=== PATIENT | male | born 1945 | race American Indian/Alaskan Native ===

== ENCOUNTER 2020-02-03 06:01 | Day surgery (SDC) | payer MEDICARE ==
[~2020-02-03 06:01] MED LIST: LACTATED RINGERS 1,000 ML IV SCH
[2020-02-03] MEDS ORDERED: BACTERIOSTATIC SODIUM CHLORIDE 0.9% 30 ML VIAL INFILTRATI ONE (06:13)
--- NOTE | 2020-02-03 07:15 | Anesthesia Consultation ---
Anesthesia Consult and Med Hx - Airway Anesthetic Teeth Evaluation: Dentures ROM Head & Neck: Adequate Mental/Hyoid Distance: Adequate Mallampati Class: Class III Intubation Access Assessment: Probably Good - Pulmonary Exam CTA: Yes - Cardiac Exam Cardiac Exam: RRR - Pre-Operative Health Status ASA Pre-Surgery Classification: ASA3 Proposed Anesthetic Plan: General - Pulmonary Hx Smoking: Yes (STOPPED X 20 YRS) Hx Asthma: No Hx Respiratory Symptoms: No SOB: No COPD: Yes (INHALER PRN- RARE USE) Hx Sleep Apnea: Yes (DX SLEEP APNEA WITH CPAP USE.) - Cardiovascular System Hx Hypertension: Yes (ON METOPROLOL FOR HEART-NOT HBP-PER PT) Hx Coronary Artery Disease: No Hx Heart Attack/AMI: No Hx Angina: No Hx Heart Murmur: No Hx Peripheral Vascular Disease: No - Central Nervous System Hx Neuromuscular Disorder: No Hx Seizures: No CVA: No Hx Back Pain: No Hx Psychiatric Problems: No - Gastrointestinal Hx Ulcer: No Hx Gastroesophageal Reflux Disease: No - Endocrine Hx Renal Disease: No Hx Non-Insulin Dependent Diabetes: Yes - Other Systems Hx Alcohol Use: Yes (HX ALCOHOL ABUSE- DRY X 20 YRS) Hx Cancer: No
--- NOTE | 2020-02-03 07:16 | Anesthesia Day of Surgery ---
Anesthesia Day of Surgery - Day of Surgery Patient Examined: Yes Patient H&P Reviewed: Yes Patient is NPO: Yes Beta Blockers: Yes (2 days ago)
[2020-02-03] MEDS ORDERED: fentaNYL 100 MCG/2 ML INJ IV PRN (07:17)
[2020-02-03] MEDS ORDERED: BUPIVACAINE/PF (0.25%) 2.5 MG/ML 30 ML VIAL INFILTRATI ONE (07:19)
[2020-02-03] MEDS ORDERED: LIDOCAINE (1%) 10 MG/1 ML VIAL 20 ML MDV ONE (07:20)
[2020-02-03] MEDS ORDERED: ONDANSETRON 4 MG/2 ML INJ ONE (07:27)
[2020-02-03] MEDS ORDERED: fentaNYL 100 MCG/2 ML INJ ONE (07:27)
[2020-02-03] MEDS ORDERED: propofoL 200 MG/20 ML VIAL IV ONE (07:27)
[2020-02-03] MEDS ORDERED: LIDOCAINE MPF (2%) 20 MG/1 ML VIAL 5 ML ONE (07:31)
[2020-02-03] MEDS ORDERED: ceFAZolin/STERILE WATER 2 GM/20 ML SYRINGE IV NR (07:35)
[2020-02-03] MEDS ORDERED: SODIUM CHLORIDE 0.9% IRR 1,500 ML BOTTLE IR ONE (08:28)
--- NOTE | 2020-02-03 09:29 | Operative Report ---
PREOPERATIVE DIAGNOSIS: Huge left hydrocele. POSTOPERATIVE DIAGNOSES: Huge left hydrocele. Lots of scar tissue. PROCEDURE: Excision of scar tissue and left hydrocelectomy. SURGEON: Josias eMjia M.D. ANESTHESIA: General. FINDINGS: This is a gentleman who has a huge hydrocele 300-400 mL of fluid in there with atrophic testis and previous aspiration, now presents for treatment. DESCRIPTION OF PROCEDURE: The patient was brought to the operating room and placed on the operating table. Following induction of anesthesia, placed in supine position, prepped and draped in usual sterile fashion. An oblique incision made over the hemiscrotum. This was dissected down to the tunica vaginalis. Lots of scar tissue was there from previous injections and aspirations. Once we got to the tunica, we opened it, up to 300 mL of clear yellow fluid was obtained with hemosiderin stained tunica. Excess tunica was excised and oversewn with 3-0 chromic. The patient tolerated the procedure well. Wound was irrigated. A Rosetta was placed in the dependent portion of the scrotum. Closure was accomplished with 2-0 and 3-0 chromic and skin with 2-0 and 3-0 chromic, brought to recovery room, minimal blood loss in stable condition. JOB# [id number] NEGRO/JOS
--- NOTE | 2020-02-03 09:44 | Post Operative Note ---
Date of procedure: 02/03/20 Pre-op diagnosis: left huge hydrocele Post-op diagnosis: same Findings: scarrimg Procedure: left hydrocel;ectomy Anesthesia: GETA Surgeon: NELY JONES Estimated blood loss: minimal Pathology: list (sac) Specimen disposition: to lab Condition: stable Disposition: PACU
--- NOTE | 2020-02-03 09:45 | Discharge Summary ---
Short Stay Discharge Plan Activity: other (no dtraining) Weight Bearing Status: Full Weight Bearing Diet: low fat, low cholesterol, low salt Wound: change dressing Special Instructions: other (no lifting) Follow up with: PRIMARY CARE, [Primary Care Provider] - 7 Days NELY JONES MD [Staff Physician] - 3 Days
[2020-02-03 10:13] VITALS: BP 122/70
--- NOTE | 2020-02-03 11:58 | Post Anesthesia Evaluation ---
- Post Anesthesia Evaluation Patient Participated: Yes Airway Patent: Yes Stable Respiratory Function: Yes Nausea/Vomiting: Yes Temp > 96.8F: Yes Pain Manageable: Yes Adequeate Hydration: Yes Anesthesia Complications: No
== END 2020-02-03 11:00 | disposition home or self-care (01) ==
LOC: OR 06:01
PROVIDERS: ATTEND Urology
DX: N43.2 Other hydrocele (principal); I10 Essential (primary) hypertension; G47.30 Sleep apnea, unspecified; K21.9 Gastro-esophageal reflux disease without esophagitis; M19.90 Unspecified osteoarthritis, unspecified site; E11.9 Type 2 diabetes mellitus without complications; N50.82 Scrotal pain; Z79.899 Other long term (current) drug therapy; Z79.84 Long term (current) use of oral hypoglycemic drugs; Z79.82 Long term (current) use of aspirin; Z87.891 Personal history of nicotine dependence; Z88.8 Allergy status to other drugs, medicaments and biological substances; Z72.89 Other problems related to lifestyle; Z98.890 Other specified postprocedural states; Z87.440 Personal history of urinary (tract) infections
CPT/HCPCS: 55040; 82962; 88302; J0690; J2405; J2704; J3010; J7120